=== PATIENT | male | born 1975 | race Caucasian/White ===

== ENCOUNTER 2020-03-26 18:37 | Emergency (ER) | payer OTHER ==
[2020-03-26 18:58] VITALS: BP 190/140; PULSE 106; O2SAT 100
[2020-03-26] MEDS ORDERED: Catapres 0.1 MG PO ONE (19:11)
[2020-03-26] MEDS ORDERED: Zestril 20 MG ONE (19:14)
--- NOTE | 2020-03-26 19:18 | ERPHSYRPT ---
- History of Present Illness Time Seen by Provider: 03/26/20 19:14 Source: patient, police Exam Limitations: no limitations Patient Subjective Stated Complaint: to er for medical clearance pt arrives states he has not taken bp meds in 3 days and he if felling like he may have syncopal episode Triage Nursing Assessment: to er for medical clearance pt arrives pale diaphoretic and states he is dizzy pt manual bp is 190/140 pt has nausea present. pt bbs cta and otherwise neg assess. Physician History: to er for medical clearance pt arrives states he has not taken bp meds in 3 days and he if felling like he may have syncopal episode Is patient is 44-year-old male history of hypertension was running away from police. Police caught him and brought him to the emergency room because he was complaining of passing out and high blood pressure. When patient came into the ER patient blood pressure was high but otherwise patient was denying any other symptoms. Patient states that he has not taken his medicine for 3 days as he was running away from the police for last 3 days and police was in search of him. Timing/Duration: today Associated Symptoms: denies symptoms Allergies/Adverse Reactions: No Known Drug Allergies Allergy (Unverified 04/24/13 03:28) Home Medications: Lisinopril 10 mg [Zestril 10 MG] 15 mg PO DAILY 03/26/20 [History] Hx Influenza Vaccination/Date Given: No Travel Risk - International Travel Have you traveled outside of the country in past 3 weeks: No - Coronavirus Screening Are you exhibiting any of the following symptoms?: Yes Symptoms: Cough: New Onset, Headaches/Body Aches/Fatigue Close contact with a COVID-19 positive Pt in past 14-21 Days: No - Review of Systems Constitutional: No Fever, No Chills Eyes: No Symptoms Ears, Nose, & Throat: No Symptoms Respiratory: No Cough, No Dyspnea Cardiac: No Chest Pain, No Edema, No Syncope Abdominal/Gastrointestinal: No Abdominal Pain, No Nausea, No Vomiting, No Diarrhea Genitourinary Symptoms: No Dysuria Musculoskeletal: No Back Pain, No Neck Pain Skin: No Rash Neurological: No Dizziness, No Focal Weakness, No Sensory Changes Psychological: No Symptoms Endocrine: No Symptoms All Other Systems: Reviewed and Negative - Past Medical History Pertinent Past Medical History: Yes Cardiac History: Hypertension Other Medical History: ear problems - Past Surgical History Past Surgical History: Yes Other Surgical History: 11 ear surgeries - Social History Smoking Status: Current every day smoker Exposure to second hand smoke: No Drug Use: none Patient Lives Alone: No - Nursing Vital Signs Nursing Vital Signs: Initial Vital Signs Temperature 98.0 F 03/26/20 18:39 Pulse Rate 106 H 03/26/20 18:39 Respiratory Rate 18 03/26/20 18:39 Blood Pressure 190/140 03/26/20 18:39 O2 Sat by Pulse Oximetry 100 03/26/20 18:39 Pain Scale Pain Intensity 4 - Physical Exam General Appearance: no apparent distress, alert Eye Exam: PERRL/EOMI, eyes nml inspection Ears, Nose, Throat Exam: normal ENT inspection, TMs normal, pharynx normal, moist mucous membranes Neck Exam: normal inspection, non-tender, supple, full range of motion Respiratory Exam: normal breath sounds, lungs clear, No respiratory distress Cardiovascular Exam: regular rate/rhythm, normal heart sounds, normal peripheral pulses Gastrointestinal/Abdomen Exam: soft, normal bowel sounds, No tenderness, No mass Back Exam: normal inspection, normal range of motion, No CVA tenderness, No vertebral tenderness Extremity Exam: normal inspection, normal range of motion, pelvis stable Neurologic Exam: alert, oriented x 3, cooperative, normal mood/affect, nml cerebellar function, nml station & gait, sensation nml, No motor deficits Skin Exam: normal color, warm, dry, No rash Lymphatic Exam: No adenopathy SpO2: 100 - Course Nursing assessment & vital signs reviewed: Yes Ordered Tests: Medication Summary Generic Name Dose Route Start Last Admin Trade Name Freq PRN Reason Stop Dose Admin Lisinopril 40 mg/ 0 mg 03/27/20 10:00 Hydrochlorothiazide 25 mg PO 04/26/20 09:59 DAILY KYLIE Lisinopril 40 mg 03/27/20 10:00 Zestril 20 Mg PO 04/26/20 09:59 DAILY KYLIE Discontinued Medications Generic Name Dose Route Start Last Admin Trade Name Freq PRN Reason Stop Dose Admin Clonidine 0.1 mg 03/26/20 19:11 Catapres 0.1 Mg PO 03/26/20 19:12 STAT ONE - Progress Progress: improved Counseled pt/family regarding: diagnosis, need for follow-up - Departure Departure Disposition: Group Home/Halfway Clinical Impression: Noncompliance with medications Hypertension Qualifiers: Hypertension type: essential hypertension Qualified Code(s): I10 - Essential (primary) hypertension Condition: Stable Critical Care Time: No Referrals: DOCTOR,NO FAMILY [Primary Care Provider] - Instructions: Malignant Hypertension, High Blood Pressure (DC) Additional Instructions: Discharge/Care Plan BIANCA LICONA was seen on 03/26/20 in the Emergency Room. The patient was counseled regarding Diagnosis,Lab results, Imaging studies, need for follow up and when to return to the Emergency Room. Prescriptions given: Discharge Note I have spoken with the patient and/or caregivers. I have explained the patient's condition, diagnosis and treatment plan based on the information available to me at this time. I have answered the patient's and/or caregiver's questions and addressed any concerns. The patient and/or caregivers have as good understanding of the patient's diagnosis, condition and treatment plan as can be expected at this point. The vital signs have been stable. The patient's condition is stable and appropriate for discharge from the emergency department. The patient will pursue further outpatient evaluation with the primary care physician or other designated or consulting physician as outlined in the discharge instructions. The patient and/or caregivers are agreeable to this plan of care and follow-up instructions have been explained in detail. The patient and/or caregivers have received these instruction. The patient/and or caregivers are aware that any significant change in condition or worsening of symptoms should prompt an immediate return to this or the closest emergency department or call 911. BIANCA LICONA was seen on 03/26/20 n the Emergency Room. At that time you were treated for an emergent condition, during your visit Laboratory, Radiology and/or other procedures may have been ordered. It is very important that you follow-up with your Primary Care Physician NO FAMILY DOCTOR within the next 24- 48 hours to review your Emergency Room visit and the final results of testing that was ordered. Some test results such as Urine Cultures, Blood Cultures, and other cultures if ordered will not be finalized for 24-48 hours. If you do not have a Primary Care Provider please call the medical records de partment at [phone] ext [phone] to obtain a copy of your results or you may sign into our patient portal to obtain these results by visiting us @ [email or web address] and completing the following steps: 1. Click on the Patient Portal link 2. Click the Patient Self Enrollment Link to complete the enrollment form and entering your 3. Once the enrollment form is completed you will receive an email with a temporary ID and password at the email address you provided. 4. Next choose a user name and password. Your user name must be at least 4 characters long and your password must be at least 4 characters long. 5. Choose a security question from the list and provide your answer to the question. If you already have signed into the Health Portal you may access your Health Care Information 09/10 by the following steps: 1. Login to our website @ [email or web address] 2. Enter your original user name and password. FAQS The [facility] Health Portal is an online tool that contains your Lab Results, Radiology Reports, Visit History, Discharge Instructions and Health Summary Lab and Radiology Results will not be available for 72 hours on the portal. The Portal is a secure site, passwords are encryted and URLs are re-written so they cannot be copied and pasted. You and authorized family members are the only ones who can access your Portal. Also there is a timeout feature that protects your information if you leave the Portal page open. If you have technical difficulty please use the Contact Us link on the page this will allow you to submit any questions you have regarding the Portal or you may contact the Medical Record Department at [phone] ext [phone]. please take all you blood pressure medications as prescribed
[2020-03-26] MEDS ORDERED: Catapres 0.1 MG ONE (19:19)
[2020-03-26] MEDS ORDERED: hydroDIURIL 25 MG ONE (19:22)
[2020-03-27] MEDS ORDERED: HYDRODIURIL 25 MG PO SCH ×2 (10:00)
[2020-03-27] MEDS ORDERED: Zestril 20 MG PO SCH (10:00)
[2020-03-27] MEDS ORDERED: ZESTRIL PO SCH ×2 (10:00)
== END 2020-03-26 19:29 | disposition home or self-care (01) ==
LOC: ED 18:37
DX: I10 Essential (primary) hypertension (principal); Z91.14 Patient's other noncompliance with medication regimen; R05 Cough; R51.9 Headache, unspecified; R53.83 Other fatigue; M79.18 Myalgia, other site
CPT/HCPCS: 99283; A9270-GY